=== PATIENT | female | born 1980 | race African-American/Black ===

== ENCOUNTER 2020-06-27 01:00 | Emergency (ER) | payer SELFPAY ==
[~2020-06-27] VITALS: Ht 177.8 cm; Wt 141.1 kg
[2020-06-27] MEDS ORDERED: ONDANSETRON HCL/PF 4 MG/2 ML VIAL IVP ONE (01:30)
[2020-06-27] MEDS ORDERED: IV NS 0.9% 1,000 ML BAG IV ONE (01:30)
--- NOTE | 2020-06-27 01:30 | NUR ---
BIBFRIEND TO ER C/C OF ATE FOOD WITHOUT KNOWING IT WAS DRUGGED (UNKNOWN SUBSTANCE) , PATIENT A/OX2-3 , BREATHING EVEN AND UNLABORED; NO SOB NOTED. NO COMPLAINTS OF PAIN OR ANY DISCOMFORT. NEEDS ATTENDED. WILL CARRY OUT MD ORDERS SCHEDULED.
[2020-06-27] MEDS ORDERED: ONDANSETRON HCL/PF 4 MG/2 ML VIAL ONE (01:37)
--- NOTE | 2020-06-27 02:00 | NUR ---
FACILITATED IV ACCESS AT AC#20. SECURED, PATENT AND FLUSHING WELL.
--- NOTE | 2020-06-27 02:04 | NUR ---
PT REFUSED MED-ZOFRAN 4MG/2ML. OPERATIONAL RISK ANALYST AND AWARE. WASTED MEDICATION;UNABLE TO RETURN
[2020-06-27 02:35] LABS: BASOPHILS % (AUTO) 0.3 % (0.0-2.0); EOSINOPHILS % (AUTO) 0.2 % (0.0-6.0); HEMATOCRIT 41 % (33-45); HEMOGLOBIN 13.7 g/dL (11.5-14.8); LYMPHOCYTES # (AUTO) 1.8 /CMM (0.8-4.8); LYMPHOCYTES % (AUTO) 17.5 % (20.0-44.0); MEAN CORPUSCULAR HGB CONC 33 g/dl (31.0-36.0); MEAN CORPUSCULAR VOLUME 92 fL (82-100); MONOCYTES # (AUTO) 0.5 /CMM (0.1-1.30); MONOCYTES % (AUTO) 4.4 % (2.0-12.0); NEUTROPHILS # (AUTO) 8.2 /CMM (1.8-8.9); NEUTROPHILS % (AUTO) 77.6 % (43.0-81.0); PLATELET COUNT (AUTO) 246 /CMM (150-450); RED BLOOD CELL COUNT(AUTO) 4.44 MIL/uL (4.0-5.2); WHITE BLOOD COUNT (AUTO) 10.5 K/uL (4.3-11.0)
[2020-06-27 02:44] LABS: CALCIUM, SERUM 9.4 mg/dL (8.5-10.1); CARBON DIOXIDE 27 mmol/L (21-32); CHLORIDE 101 mmol/L (98-107); CREATININE 0.9 mg/dL (0.6-1.3); GLUCOSE 204 mg/dL (74-106); SODIUM SERUM 136 mmol/L (136-145); UREA NITROGEN, BLOOD 12 mg/dL (7-18)
[2020-06-27 02:50] LABS: ALANINE AMINOTRANSFERASE 26 U/L (12-78); ALBUMIN 3.9 g/dL (3.4-5.0); ALCOHOL, BLOOD < 3 mg/dL (0-0); ALKALINE PHOSPHATASE 62 U/L (46-116); ASPARTATE AMINOTRANSFERASE 28 U/L (15-37); BILIRUBIN,DIRECT 0.1 mg/dL (0.0-0.2); BILIRUBIN,TOTAL 0.2 mg/dL (0.2-1.0); LIPASE 44 U/L (73-393); TOTAL PROTEIN, SERUM 8.2 g/dL (6.4-8.2)
[2020-06-27 02:55] LABS: ACETAMINOPHEN < 2 ug/ml (10-30)
--- NOTE | 2020-06-27 03:04 | NUR ---
URINE COLLECTED, CALLED LAB FOR EVISCERATOR
[2020-06-27 04:09] LABS: BILIRUBIN,URINE NEGATIVE (NEGATIVE); COLOR,URINE YELLOW (YELLOW); LEUKOCYTE ESTERASE ,URINE NEGATIVE (NEGATIVE); NITRITE, URINE NEGATIVE (NEGATIVE); PH,URINE 5.5 (5.0-8.0); PROTEIN,URINE 100 mg/dl (NEGATIVE); UGLUCOSE NEGATIVE (NEGATIVE); UROBILINOGEN,URINE 0.2 EU/dL (0.2)
[2020-06-27 04:20] LABS: BACTERIA,URINE None seen /HPF (None Seen); RBC,URINE 0-2 /HPF (0-2); WBC,URINE 0-2 /HPF (0-3); YEAST,URINE Moderate /HPF (None Seen)
[2020-06-27 04:21] LABS: SQUAMOUS EPITHELIAL CELL,UR Moderate /HPF (None Seen)
--- NOTE | 2020-06-27 04:39 | NUR ---
ATTEMPTED TO CONTACT PT'S FRIEND KYLE ([phone]) FOR PRESS OPERATOR APPRENTICE. LEFT MESSAGE, WILL FOLLOW UP
--- NOTE | 2020-06-27 05:04 | NUR ---
DC PATIENT DISCHARGED TO HOME IN STABLE CONDITION. WRITTEN AND VERBAL AFTER CARE INSTRUCTIONS GIVEN.IV REMOVED. CATHETER INTACT AND SITE BENIGN. PRESSURE AND 4X4 APPLIED TO SITE. NO BLEEDING NOTED. PATIENT VERBALIZES UNDERSTANDING OF INSTRUCTION.
[2020-06-27 05:10] VITALS: BP 111/64
== END 2020-06-27 05:13 | disposition home or self-care (01) ==
LOC: ER 01:06
DX: F12.90 Cannabis use, unspecified, uncomplicated (principal); R42 Dizziness and giddiness; I10 Essential (primary) hypertension
CPT/HCPCS: 36415; 80048; 80076; 80299; 80307; 80320; 81001; 82962; 83690; 84484; 84703; 85025; 87086; 93005; 96360; 99285; J7030; G0480; J2405